=== PATIENT | female | born 1945 | race Caucasian/White ===

== ENCOUNTER → 2019-04-25 | Day surgery (SDC) | payer MEDICARE, OTHER ==
[2019-04-15 11:56] LABS: BASOPHILS # (AUTO) 0.1 (0.0-0.1); BASOPHILS % 0.6 % (0.0-1.0); EOSINOPHILS # (AUTO) 0.2 (0.0-0.4); EOSINOPHILS % 2.9 % (0.0-6.0); HEMATOCRIT 34.8 % (34.2-44.1); LYMPHOCYTES # (AUTO) 1.3 (1.0-3.2); LYMPHOCYTES % 16.1 % (18.0-39.1); MEAN CORPUSCULAR HEMOGLOBIN 27.3 pg (28-32); MEAN CORPUSCULAR HGB CONC 31.6 g/dL (31-35); MEAN CORPUSCULAR VOLUME 86.4 fL (81-99); MONOCYTES # (AUTO) 0.7 (0.2-0.8); MONOCYTES % 7.8 % (4.4-11.3); NEUTROPHILS % 72.2 % (38.7-80.0); PLATELET COUNT 255 x10e3/uL (140-360); RED BLOOD COUNT 4.03 x10e6/uL (3.6-5.1); RED CELL DISTRIBUTION WIDTH 16.7 % (11.7-14.4)
[~2019-04-25] MED LIST: ALENDRONATE SOD70 MG PO; AMBIEN10 MG PO; AMLODIPINE BESYL5 MG PO; ATORVASTATIN CA20 MG PO; BETAMETHASONE D50 G1 TP; CHOLESTYRAMINE P4 GM PO; CLOTRIMAZOLE15 GM TOP; ESCITALOPRAM OX10 MG PO; ESZOPICLONE PO; FLONASE ALLERG9.9 ML INH; GABAPENTIN100 MG PO; HYDROCODON-ACE1 EACH PO; KETOCONAZOLE60 GM TP; MEGASTROL PO; MELOXICAM7.5 MG PO; PROPOFOL IV EMULSION 10 MG/ML 50 ML VIAL ONE; TRAMADOL HCL50 M1 PO; Z CARBIDOPA LEVO PO; Z PROPRANOLOL HCL PO; Z.0.AMANTADINE100 MG PO; Z.0.CLONIDINE HCL0.1 PO; Z.0.CYCLOBENZAPRINE1 PO; Z.0.LEVOTHYROXINE75 PO; Z.0.METOCLOPRAMIDE10 PO; Z.0.NASONEX17 GM NS; Z.0.NEXIUM40 MG PO; Z.0.OXYBUTYNIN CHLOR PO; Z.0.PROMETHAZINE HC2 PO; Z.0.SIMVASTATIN40 MG PO; Z.0.SINGULAIR10 MG PO; Z.0.XANAX0.5 MG PO; Z.1.MECLIZINE HCL25 PO; [UNRECOGNIZED DRUG - OTHER] TP; iron PO; vitamin d3 PO
--- OUTSIDE RECORDS SUMMARY | 2019-04-25 06:32 | XMS REPORT | Summary of Care ---
Author Author [facility] Organization [facility] Address Unknown Phone Unavailable Care Team Providers Care [place] Name Role Phone PCP Unavailable Reason for Referral * (Routine) Referred By Contact Referred To Contact Status Reason Specialty Diagnoses / Procedures Scooter Norman MD [address] [place] [address] Pending Consult, Test, and Rheumatology Diagnoses Treat Arthritis Reason for Visit * Reason Comments Initial Consultation arthritis Encounter Details Care Team Description Date Type Department Scooter Norman MD [address] [place] [address] Initial Consultation (arthritis) 04/16/2019 Office Visit [facility] Rheumatology [address] [place] [address] [address], [address] [place] [address] Allergies Comments Active Allergy Reactions Severity Noted Date Codeine 04/16/2019 Penicillins 04/16/2019 documented as of this encounter (statuses as of 04/18/2019) Medications End Date Status Medication Sig Dispensed Refills Start Date Active alendronate (FOSAMAX) 70 Take 70 mg by 0 MG tablet mouth. Active megestrol (MEGACE) 20 MG Take 20 mg by 0 tablet mouth daily. Active oxybutynin (DITROPAN XL) Take 15 mg by 0 15 MG CR tablet mouth daily. Active levothyroxine (SYNTHROID) Take 75 mcg 0 75 MCG tablet by mouth daily. Active gabapentin (NEURONTIN) Take 100 mg 0 100 MG capsule by mouth 3 times daily. Active meloxicam (MOBIC) 15 MG Take 15 mg by 0 tablet mouth daily. Active esomeprazole (NEXIUM) 40 Take 40 mg by 0 MG capsule mouth every morning (before breakfast). Active escitalopram (LEXAPRO) 10 Take 10 mg by 0 MG tablet mouth daily. documented as of this encounter (statuses as of 04/18/2019) Active Problems Not on filedocumented as of this encounter (statuses as of 04/18/2019) Social History Date Tobacco Use Types Packs/Day Years Used Never Smoker Smokeless Tobacco: Never Used Drinks/Week oz/Week Comments Alcohol Use Never Alcohol Habits Answer Date Recorded How often do you have a drink containing alcohol? Never 04/16/2019 How many drinks containing alcohol do you have on Not asked a typical day when you are drinking? How often do you have six or more drinks on one Not asked occasion? Sex Assigned at Date Recorded Not on file Industry Job Start Date Occupation Not on file Not on file Not on file Travel End Travel History Travel Start No recent travel history available. documented as of this encounter Last Filed Vital Signs Reading Time Taken Comments Vital Sign 135/90 04/16/2019 2:47 PM [employer] Blood Pressure 87 04/16/2019 2:47 PM [employer] Pulse 36.9 C (98.4 F) 04/16/2019 2:47 PM [employer] Temperature 16 04/16/2019 2:47 PM [employer] Respiratory Rate 100% 04/16/2019 2:47 PM [employer] Oxygen Saturation - - Inhaled Oxygen Concentration 46.1 kg (101 lb 9.6 oz) 04/16/2019 2:47 PM [employer] Weight - - Height - - Body Mass Index documented in this encounter Progress Notes * Scooter Norman MD - 04/16/2019 2:45 PM [employer] Unfortunately half way through the visit the patient was informed by the [facility] that their insurance would not cover the visit. The patient was unable to self pay for the visit. The patient and her brother decided to leave clinic and look for another rheumat ologist in network. I informed them I would be happy to see them if there insurance changed. Scooter Norman [employer] documented in this encounter Plan of Treatment Order Schedule Name Type Priority Associated Diagnoses Ordered: 04/16/2019 AMB REF TO RHEUMATOLOGY Outpatient Routine Arthritis EXTERNAL Referral Health Maintenance Due Date Last Done Comments COLON CANCER SCREENIN1947 COLONOSCOPY MAMMOGRAM ANNUAL 1947 TETANUS SHOT (ADULT) 1962 HEPATITIS C SCREENING 1965 MEDICARE AWV (Initial) 12/29/2003 FALL SCREEN 01/11/2012 OSTEOPOROSIS SCREENING 01/11/2012 PNEUMOVAX >=65 (PPSV23) 01/11/2012 PREVNAR >=65 (PCV13) 01/11/2012 FLU VACCINE > 6 MONTHS 09/27/2018 documented as of this encounter Results Not on filedocumented in this encounter Visit Diagnoses Diagnosis Arthritis - Primary Arthropathy, unspecified, site unspecified documented in this encounter Insurance Type Payer Benefit Subscriber ID Effective Phone Address Plan / Dates Group Medicaid MEDICAID TM[employer]-MEDIC xxxxxxxxx 2019-P [address] [place] [address] Medicare MEDICARE MEDICARE xxxxxxxxxxx 2003- [address] Present [id number] [place] [address] Medicaid [employer] STAR PLUS xxxxxxxxx Effective [address] - CIG[employer] for all [id number] [employer] dates [facility] [place] [address] documented as of this encounter
--- OUTSIDE RECORDS SUMMARY | 2019-04-25 06:32 | XMS REPORT ---
Author Author [facility] Address Unknown Phone Unavailable Care Team Providers Care Wearing Apparel Folder Name Role Phone Unavailable Unavailable Problems This patient has no known problems. Allergies, Adverse Reactions, Alerts This patient has no known allergies or adverse reactions. Medications This patient has no known medications. Encounters Start Date/Time End Date/Time Encounter Type Admission Type Attending Clinicians Care Facility Care Department Encounter ID 2019-02-14 14:25:20 Outpatient [id number] 2018-12-05 17:41:00 2018-12-05 17:41:00 Emergency E [id number] 2018-09-19 17:52:00 2018-09-19 17:52:00 Outpatient E [facility] MED [id number]
[2019-04-25 09:35] VITALS: BP 141/81
== END | disposition home or self-care (01) ==
LOC: OR 06:23
PROVIDERS: ATTEND Internal Medicine Gastroenterology
DX: K29.70 Gastritis, unspecified, without bleeding (principal); K44.9 Diaphragmatic hernia without obstruction or gangrene; Q39.4 Esophageal web; R63.4 Abnormal weight loss; Z68.1 Body mass index [BMI] 19.9 or less, adult; Z88.5 Allergy status to narcotic agent; Z88.0 Allergy status to penicillin; Z88.8 Allergy status to other drugs, medicaments and biological substances; Z01.810 Encounter for preprocedural cardiovascular examination; Z01.812 Encounter for preprocedural laboratory examination; G20 Parkinson's disease; K58.9 Irritable bowel syndrome, unspecified; I10 Essential (primary) hypertension; E78.00 Pure hypercholesterolemia, unspecified; K21.9 Gastro-esophageal reflux disease without esophagitis
CPT/HCPCS: 36415; 43239; 43249; 85025; 88305; 88312; 93005; J2704

== ENCOUNTER → 2020-08-27 | Outpatient (CLI) | payer OTHER, MEDICARE ==
[~2020-08-27] MED LIST changes: -PROPOFOL IV EMULSION 10 MG/ML 50 ML VIAL ONE
== END ==
LOC: DX 12:55
PROVIDERS: ATTEND Internal Medicine Gastroenterology
DX: K59.00 Constipation, unspecified (principal); R13.10 Dysphagia, unspecified
CPT/HCPCS: 74230

== ENCOUNTER → 2024-12-05 | Day surgery (SDC) | payer MEDICARE, OTHER ==
[2024-11-28 16:41] LABS: BASOPHILS % 0.7 % (0.0-1.0); EOSINOPHILS % 2.6 % (0.0-6.0); LYMPHOCYTES % 33.0 % (18.0-39.1); MONOCYTES % 9.9 % (4.4-11.3); NEUTROPHILS % 53.6 % (38.7-80.0); RED CELL DISTRIBUTION WIDTH 13.9 % (11.7-14.4)
[~2024-12-05] MED LIST changes: +CYPROHEPTADINE H4 MG PO; +FAMOTIDINE20 MG PO; +FENTANYL CITRATE/PF 100MCG/2 ML INJ ONE; +FOLIC ACID0.4 MG PO; +GEMTESA75 MG PO; +GLYCOPYRROLATE INJ 0.2 MG/ML VIAL ONE; +LIDOCAINE HCL 2% LOCAL INJ 5 ML SDV VIAL INJ ONE; +MULTI-VITAMIN1 EACH PO; +NIACIN1 GM TOP; +NITROFURANTOIN50 MG PO; +OTREXUP 1010 MG/0.4 SC; +PROPOFOL IV EMULSION 10 MG/ML 20 ML VIAL ONE; +SIMETHICONE80 MG PO; +SUPER B-50 COM1 EAC2 PO
[2024-12-05] MEDS: LACTATED RINGER'S 1,000 ML ONE (09:03)
[2024-12-05 09:21] VITALS: TEMP 98.8
[2024-12-05 09:45] VITALS: BP 130/81; PULSE 86; RESP 16; O2SAT 98
== END | disposition home or self-care (01) ==
LOC: ENDO 07:28
PROVIDERS: ATTEND Internal Medicine Gastroenterology
DX: R13.10 Dysphagia, unspecified (principal); K29.50 Unspecified chronic gastritis without bleeding; K21.9 Gastro-esophageal reflux disease without esophagitis; G60.0 Hereditary motor and sensory neuropathy; I10 Essential (primary) hypertension; E78.5 Hyperlipidemia, unspecified; R06.02 Shortness of breath; E03.9 Hypothyroidism, unspecified; M06.9 Rheumatoid arthritis, unspecified; Z78.9 Other specified health status; Z88.6 Allergy status to analgesic agent; Z88.0 Allergy status to penicillin; Z88.8 Allergy status to other drugs, medicaments and biological substances; Z01.810 Encounter for preprocedural cardiovascular examination; Z01.812 Encounter for preprocedural laboratory examination; Z79.899 Other long term (current) drug therapy; Z68.23 Body mass index [BMI] 23.0-23.9, adult; Z86.73 Personal history of transient ischemic attack (TIA), and cerebral infarction without residual deficits
CPT/HCPCS: 36415 ×2; 43239; 43249; 82948; 85025; 88305; 88342; 93005; J2003; J2704; J3010; J7121; 43450